=== PATIENT | male | born 2005 | race Two or more races ===

== ENCOUNTER 2024-03-09 21:14 | Emergency (ER) | payer OTHER ==
[2024-03-09 21:47] VITALS: BP 119/68; PULSE 81; RESP 16; TEMP 98.2; BMI 22.7
[2024-03-09] MEDS ORDERED: predniSONE 20 MG TABLET (UD) ONE (21:58)
[2024-03-09] MEDS: predniSONE 20 MG TABLET (UD) PO ONE (21:59)
== END 2024-03-09 22:02 | disposition home or self-care (01) ==
LOC: FER 21:14
DX: T63.451A Toxic effect of venom of hornets, accidental (unintentional), initial encounter (principal)
CPT/HCPCS: 99283-25